=== PATIENT | female | born 1970 | race Caucasian/White ===

== ENCOUNTER 2018-05-09 17:45 | Emergency (ER) | payer OTHER ==
[2018-05-09 18:26] VITALS: BP 129/88; PULSE 81; TEMP 98.1; BMI 46.6
[2018-05-09] MEDS ORDERED: ACETAMINOPHEN 500 MG TABLET (FP) PO ONE (19:14)
[2018-05-09 19:41] LABS: ARTERIAL BLD GAS O2 SATURATION 97.9 % (90-98.9); ARTERIAL BLOOD GAS BASE EXCESS 0.9 meq/l (-2-2); ARTERIAL BLOOD GAS PCO2 38.9 mmHg (35-45); ARTERIAL BLOOD GAS PO2 88.2 mmHg (80-100); ARTERIAL BLOOD GAS pH 7.42 (7.35-7.45)
[2018-05-09 19:44] LABS: CARBOXYHEMOGLOBIN 4.4 gm% (0.5-2.0)
--- NOTE | 2018-05-09 19:57 | PDOC ---
Attending Attestation - HPI HPI: 05/09/18 20:16 The patient is a 47 year old female, with a significant past medical history of HTN, CAD s/p 2x MD (no stents), who presents to the emergency department with, headache and chest tightness. As per patient, her headache and chest tightness onset at 10am. She describes her chest tightness as an intermittent tightness. She denies any worsening or alleviating factors and feels different from her previous MIs. As per patient, her carbon monoxide alarm went off this morning which prompted her to call 911. She reports that the fire department noted there was a leak in her refrigerators rotor. The fire department advised her to report to the ED for further evaluation. She denies recent fevers, chills, or dizziness. She denies recent nausea, vomit , diarrhea or constipation. She denies recent dysuria, frequency, urgency or hematuria. She denies recent shortness of breath. Allergies: NKA Social history: Nonsmoker. Denies EtOH use and recreational drug use. Primary Care Physician: Dr. Martinez - Physicial Exam PE: 05/09/18 20:17 GENERAL: Awake, alert, and fully oriented, in no acute distress HEAD: No signs of trauma NECK: Normal ROM. LUNGS: Breath sounds equal, clear to auscultation bilaterally. No wheezes, and no crackles HEART: Regular rate and rhythm, normal S1 and S2, no murmurs, rubs or gallops ABDOMEN: Soft, nontender, normoactive bowel sounds. No guarding, no rebound. No masses EXTREMITIES: Normal range of motion, no edema. No clubbing or cyanosis. No cords, erythema, or tenderness NEUROLOGICAL: Cranial nerves II through XII grossly intact. Normal speech, normal gait SKIN: Warm, Dry, normal turgor, no rashes or lesions noted. <Sona Morales - Last Filed: 05/09/18 20:16> - Resident Resident Name: Angela Padilla - ED Attending Attestation I have performed the following: I have examined & evaluated the patient, The case was reviewed & discussed with the resident, I agree w/resident's findings & plan, Exceptions are as noted - Medical Decision Making 05/09/18 19:35 A portion of this note was written by my scribe, under my supervision. Vital Signs Temp Pulse Resp BP Pulse Ox 98.1 F 81 16 129/88 99 05/09/18 18:16 05/09/18 18:16 05/09/18 18:16 05/09/18 18:16 05/09/18 18:46 47 year old female with female with history of HTN, CAD s/p 2x MD (no stents) presents with headache. The patient reports this morning of having a tension like headache and very mild chest discomfort (nonexertional, no radiation, no SOB) since 10 am. It was intermittent and would come and go. States feels different from her MD. Pt noted that morning that her carbon monoxide detector alarm went off. 911 was called and home was checked. According to them, the CO was coming from the rotor of the refrigerator, which was then promptly disconnected. The patient was then advised then to go to the ED. Patient denies recent illnesses. reports very minimal chest discomfort that's different from her MD pain. Her symptoms are likely secondary to carboxyhemoglobin exposure. Less likely to be ACS, but will send troponin given her cardiac history. Will obtain an ECG, trop, test and carboxyhemoglobin level. If the workup is negative, I feel comfortable letting the patient go home. 05/09/18 20:49 Carboxyhemoglobin 4.4. Pt feels reassurred. ECG reassuring. If blood work including troponin is negative, patient feels comfortable going home. <Erick Linder - Last Filed: 05/09/18 20:50> Heart Score/ECG Review #1 ECG reviewed & interpreted by me at: 20:50 05/09/18 20:50 NSr 59, no std/jay, TWI III, normal xis, normal intervals, QTC 403 msec <Erick Linder - Last Filed: 05/09/18 20:50> Attestations - Attestations 05/09/18 20:18 Documentation prepared by Sona Morales, acting as medical intern for Erick Linder MD. <Sona Morales - Last Filed: 05/09/18 20:16>
[2018-05-09] MEDS ORDERED: ACETAMINOPHEN 325 MG TABLET (FP) ONE (20:18)
[2018-05-09 20:24] LABS: EOS % 1.1 % (0-4.5); HEMATOCRIT 38.6 % (32.4-45.2); HEMOGLOBIN 13.2 GM/dL (10.7-15.3); MCH 31.5 pg (25.7-33.7); MCHC 34.2 g/dl (32.0-36.0); MEAN CELL VOLUME 92.1 fl (80-96); MEAN PLT VOLUME 9.2 fl (7.5-11.1); MONO % 9.3 % (3.8-10.2); NEUT % 52.6 % (42.8-82.8); PLATELET COUNT 248 K/MM3 (134-434); RBC 4.19 M/mm3 (3.60-5.2); RDW 13.8 % (11.6-15.6); WHITE BLOOD COUNT 6.1 K/mm3 (4.0-10.0)
--- NOTE | 2018-05-09 20:41 | PDOC ---
History of Present Illness - General Chief Complaint: Headache Stated Complaint: HEADACHE/NAUSEOUS Time Seen by Provider: 05/09/18 18:43 - History of Present Illness Initial Comments: 05/09/18 20:56 The patient is a 47 year old female with a PMH of CAD (s/p IN x2 in her 30's) presents with headache and chest tightness following a known carbon monoxide exposure. Patient states she woke up this morning with a headache. She smelled something funny around 3 p.m. this afternoon and called [facility] Estrada who discovered a CO leak coming from the engine of her refrigerator. Patient was told because of her headache and chest tightness she should proceed to the ED for further evaluation. Her two young children at home were cleared by [place] [facility] who was also on scene. Her refrigerator was disconnected and the [facility] cleared her apartment for re-entry. Patient denies abdominal cramping, confusion, visual changes, malaise or nausea. NKDA Surgical: Angiocath Social: denies toxic habits PMD: Dr. Martinez ([facility]) Past History - Past Medical History Allergies/Adverse Reactions: Allergies Allergy/AdvReac Type Severity Reaction Status Date / Time No Known Allergies Allergy Verified 05/09/18 18:15 Home Medications: Ambulatory Orders Amlodipine Besylate [Norvasc -] 2.5 mg PO BID 05/09/18 Aspirin 81 mg PO DAILY 05/09/18 COPD: No DVT: No HTN: Yes - Immunization History Immunization Up to Date: Yes - Suicide/Smoking/Psychosocial Hx Smoking History: Never smoked Information on smoking cessation initiated: No Hx Alcohol Use: No Drug/Substance Use Hx: No Substance Use Type: None *Physical Exam - Vital Signs Last Vital Signs Temp Pulse Resp BP Pulse Ox 98.1 F 81 16 129/88 99 05/09/18 18:16 05/09/18 18:16 05/09/18 18:16 05/09/18 18:16 05/09/18 18:46 - Physical Exam General Appearance: Yes: Nourished, Appropriately Dressed HEENT: positive: EOMI, CHINTAN Neck: positive: Trachea midline, Supple Respiratory/Chest: positive: Lungs Clear, Normal Breath Sounds. negative: Labored Respiration, Rapid RR, Crackles, Rales, Stridor, Wheezing Cardiovascular: positive: Regular Rhythm, Regular Rate, S1, S2 Gastrointestinal/Abdominal: positive: Normal Bowel Sounds, Soft. negative: Distended, Guarding, Rebound, Tenderness Musculoskeletal: negative: CVA Tenderness (R), CVA Tenderness (L) Extremity: positive: Normal Capillary Refill, Normal Inspection Integumentary: positive: Normal Color, Dry, Warm Neurologic: positive: group burner machine II-XII NML intact, Fully Oriented, Alert, Responsive, Finger to Nose. negative: Confused ED Treatment Course - LABORATORY CBC & Chemistry Diagram: 05/09/18 20:15 05/09/18 20:15 - ADDITIONAL ORDERS Additional order review: Laboratory Results 05/09/18 05/09/18 05/09/18 20:15 19:33 19:33 Anticoagulation Therapy No Result Required. Puncture Site Right radial ABG pH 7.42 ABG pCO2 at Pt Temp 38.9 ABG pO2 at Pt Temp 88.2 ABG HCO3 24.8 ABG O2 Sat (Measured) 97.9 ABG O2 Content 16.8 ABG Base Excess 0.9 Rom Test No Result Required. Carboxyhemoglobin 4.4 H Methemoglobin 1.4 O2 Delivery Device No Result Required. Oxygen Flow Rate No Vent Mode No Result Required. Vent Rate No Result Required. Mechanical Rate No Result Required. Pressure Support Vent No Result Required. Serum , Qual Negative 05/09/18 20:15 RBC 4.19 MCV 92.1 MCHC 34.2 RDW 13.8 MPV 9.2 Neutrophils % 52.6 Lymphocytes % 36.0 Monocytes % 9.3 Eosinophils % 1.1 Basophils % 1.0 - Medications Given in the ED: ED Medications Discontinued Medications Generic Name Dose Route Start Last Admin Trade Name Ronnell PRN Reason Stop Dose Admin Acetaminophen 1,000 mg 05/09/18 19:14 05/09/18 20:21 Tylenol - PO 05/09/18 19:15 1,000 mg ONCE ONE Administration Medical Decision Making - Medical Decision Making 05/09/18 20:41 47 year old female with known CO exposure concerning history for IN x2 in her 30 's. No focal neurologic deficits on PE. C/o headache, chest tightness. Pain is constant, non-exertional, no radiation no associated dyspnea, lightheadness, palpitations. Denies similarity to her IN which presented clinically as back pain. Clinical suspicion for CO poisoning, however given's patient's h/o IN in her 30's will obtain EKG and Troponin x1 to r/o ACS. ABG pending. O2 via NC. 05/09/18 20:49 EKG shows NSR HR 59, no VI/STD w/normal variant TWI in Leads III as well as TWI in V1 and avR Carboxyhemoglobin 4.4 - no clinical requirement for hyperbaric therapy at this level Troponin x1 At this time, low clinical suspicion for ACS. Patient's SiSx likely 2/2 to carbon monoxide exposure. Will discharge patient home with return precautions and PMD follow-up. Patient counseled and amenable to discharge. Clinical Impression: Carbon Monoxide Poisoning I discussed the physical exam findings, ancillary test results and final diagnoses with the patient. I answered all of the patient's questions. The patient was satisfied with the care received and felt comfortable with the discharge plan and treatment plan. The patient will return to the Emergency Department with any new, persistent or worsening symptoms. *DC/Admit/Observation/Transfer Diagnosis at time of Disposition: Carbon monoxide poisoning - Discharge Dispostion Disposition: HOME Condition at time of disposition: Good Decision to Admit order: No - Referrals Referrals: Evan Martinez [Primary Care Provider] - - Patient Instructions Additional Instructions: You were evaluated today for carbon monoxide exposure. Your labs showed a level of carbon monoxide that does not require further medical intervention at this time. Please follow up with Dr. Martinez in the next 2-3 days. A copy of your labs have been provided to you, please take these to your primary care doctor appointment. Return to the Emergency Department for any new/worsening/concerning symptoms including increased headache, confusion or shortness of breath. - Post Discharge Activity
[2018-05-09 20:47] LABS: ALBUMIN 3.2 g/dl (3.4-5.0); ANION GAP 9 (8-16); BILIRUBIN,TOTAL 0.2 mg/dL (0.2-1.0); BLOOD UREA NITROGEN 11 mg/dL (7-18); CALCIUM 8.9 mg/dL (8.5-10.1); CHLORIDE 108 mmol/L (98-107); CO2 25 mmol/L (21-32); CREATININE 0.6 mg/dL (0.55-1.02); GLUCOSE,RANDOM 105 mg/dL (74-106); POTASSIUM 4.3 mmol/L (3.5-5.1); SGOT/AST 17 U/L (15-37); SGPT/ALT 20 U/L (12-78); SODIUM 142 mmol/L (136-145); TOT PROT 7.7 g/dl (6.4-8.2)
[2018-05-09 20:50] LABS: ALK PHOS 87 U/L (45-117)
--- NOTE | 2018-05-10 09:34 | EKG ---
Test Reason : Blood Pressure : / mmHG Vent. Rate : 059 BPM Atrial Rate : 059 BPM P-R Int : 146 ms QRS Dur : 082 ms QT Int : 408 ms P-R-T Axes : 021 031 014 degrees QTc Int : 403 ms POOR DATA QUALITY, INTERPRETATION MAY BE ADVERSELY AFFECTED SINUS BRADYCARDIA WITH SINUS ARRHYTHMIA OTHERWISE NORMAL ECG NO PREVIOUS ECGS AVAILABLE Confirmed by ADAM GAMING MD ([id number]) on 05/10/2018 9:33:40 AM Referred By: Confirmed By:ADAM GAMING MD
== END 2018-05-09 21:08 | disposition home or self-care (01) ==
LOC: JER 17:45
DX: T58.8X1A Toxic effect of carbon monoxide from other source, accidental (unintentional), initial encounter (principal); R07.89 Other chest pain; R51 Headache; Y92.090 Kitchen in other non-institutional residence as the place of occurrence of the external cause; I25.10 Atherosclerotic heart disease of native coronary artery without angina pectoris; I25.2 Old myocardial infarction
CPT/HCPCS: 36415; 36600; 80053; 82375; 82550; 82803; 83050; 84484; 84703; 85025; 93005; 93010; 99282-25